=== PATIENT | female | born 1935 | race Caucasian/White ===

== ENCOUNTER → 2016-08-27 | Outpatient (CLI) | payer MEDICARE ==
--- NOTE | 2016-08-29 11:03 | P.ARTDOP ---
Arterial Doppler LOWER EXTREMITY ARTERIAL DOPPLER: DATE OF SERVICE: 08/27/2016 Reason for study: Diabetes. Doppler waveforms: Multiphasic to the dorsalis pedis on both sides blunted at the digital level. Pulse volume recording: Normal configuration. Pressure gradients: Mild gradient at the foot. Ankle-brachial indices: Greater than 1 bilaterally. Toe pressures: 71 on the right, 65 on the left Impression: Normal proximal study. Mildly decreased toe pressures could be related to vasospasm or less likely due to very distal disease
== END ==
LOC: RADUSWWP 13:42
PROVIDERS: ATTEND Family Medicine
DX: G62.9 Polyneuropathy, unspecified (principal)
CPT/HCPCS: 93923

== ENCOUNTER → 2017-05-30 | Outpatient (CLI) | payer MEDICARE ==
[2017-05-30 10:09] LABS: Blood Urea Nitrogen 19 mg/dL (7-17); Non-African American GFR(MDRD) 57 (>60 ml/min/1.73 sqM)
--- NOTE | 2017-05-30 13:24 | MR ---
EXAMINATION TYPE: MR lumbar spine wo/w con DATE OF EXAM: 05/30/2017 COMPARISON: NONE HISTORY: 81-year-old female with low back pain Technique: Multiplanar, multisequence images of the lumbar spine were obtained before and after admin istration of 5 mL intravenous Gadavist gadolinium contrast. FINDINGS: Vertebral body heights are preserved. Hypertrophic facet arthropathy lower lumbar spine with grade 1 anterolisthesis at L4-L5. Degenerative dextroconvex curvature. There is degenerative disc disease with desiccated and narrowed discs especially at L2-L3 and L3-L4. Additional variable disc desiccation throughout the remainder of the lumbar spine with bulging disks at multiple levels. Small posterior annular fissure off to the right at L5-S1. No suspicious bone marrow replacement. At T12-L1, no spinal canal or neural foraminal stenosis. At L1-L2, no spinal canal or neuroforaminal stenosis. At L2-L3, there is Modic type II fatty endplate change with diffuse disc bulge, ligamentum flavum thi ckening, and hypertrophic facet arthropathy. Bulging disc extends off to either side and may abut the traversing right L3 nerve root and possibly impinges the traversing left L3 nerve root. Changes resu lt in moderate left and mild right neuroforaminal stenosis. No significant spinal canal stenosis. At L3-L4, there is a large left paracentral disc extrusion along with hypertrophic facet arthropathy and ligamentum flavum thickening. This results in moderate to severe spinal canal stenosis with moder ate left and mild right neural foraminal stenosis. At L4-L5, there is hypertrophic facet arthropathy with ligamentum flavum thickening and grade 1 anter olisthesis. Minimal bulging disc is present. Changes result in mild bilateral neuroforaminal stenosis without spinal canal stenosis. At L5-S1, there is facet arthropathy and minimal disc bulge. Mild bilateral neuroforaminal narrowing. No spinal canal stenosis. No prevertebral or paravertebral soft tissue abnormality seen. No abnormal enhancement within the spinal canal. IMPRESSION: 1. Multilevel degenerative disc disease, greatest at L2-L3 and L3-L4 as well as hypertrophic facet ar thropathy and ligamentum flavum thickening greatest in the lower lumbar spine. 2. Changes and a grade 1 anterolisthesis at L4-L5. Degenerative dextroconvex curvature. 3. At L3-L4, there is a large left paracentral disc herniation which causes moderate to severe spinal canal stenosis. Moderate left and mild right neuroforaminal stenosis at this level. 4. At L2-L3, bulging disc extends off to either side and may abut the traversing right L3 nerve root and probably impinges the traversing left L3 nerve root. Moderate left and mild right neuroforaminal stenosis here. 5. Tiny posterior annular fissure at L5-S1.
== END | disposition home or self-care (01) ==
LOC: RADMRIMAIN 09:39
PROVIDERS: ATTEND Physical Medicine & Rehabilitation
DX: M48.061 Spinal stenosis, lumbar region without neurogenic claudication (principal); M43.16 Spondylolisthesis, lumbar region; M51.36 Other intervertebral disc degeneration, lumbar region; M46.96 Unspecified inflammatory spondylopathy, lumbar region; M51.26 Other intervertebral disc displacement, lumbar region; M99.73 Connective tissue and disc stenosis of intervertebral foramina of lumbar region; M43.8X6 Other specified deforming dorsopathies, lumbar region
CPT/HCPCS: 82565; 84520; 72158; A9581

== ENCOUNTER → 2018-06-05 | Outpatient (CLI) | payer MEDICARE | END | disposition home or self-care (01) | LOC: RADUSWWP 09:44 | PROVIDERS: ATTEND Family Medicine | DX: I73.9 Peripheral vascular disease, unspecified (principal) | CPT/HCPCS: 93923 ==

== ENCOUNTER → 2020-01-15 | Outpatient (CLI) | payer MEDICARE ==
[2020-01-15 08:57] VITALS: BP 151/69; PULSE 65; RESP 18; TEMP 97.8
--- NOTE | 2020-01-15 09:46 | P.GSHP ---
History of Present Illness H&P Date: 01/15/20 Chief Complaint: Abnormal left breast mammogram Cecille is an 84-year-old white female who had a recent diagnostic mammogram performed of the left breast on 01-07-20. She is seen in consultation for Dr. Joi Fajardo. The mammogram revealed a group of pleomorphic microcalcifications in the inferior portion of the left breast about 5 o'clock position 3.6 cm from the nipple. The recommendation was for stereotactic core biopsy. 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 This was grade 2 ER/MT positive HER-2/cirilo negative. She was on phentermine area for 5 years. She did not have any radiation or chemotherapy. She has not had any recurrence. The patient does not have any lumps masses or nodules in her left breast, no lesions of concern on her right chest wall. She is not complaining of any recent trauma or infection in the breast. She is not complaining of any skin changes or nipple discharge. Family history: patient: right breast cancer mother: breast cancer sister: colon cancer Hormonal history: Menarche: 13 , breast fed: none, first born at 23 menopause: 47 BCP: < 1 year hormones: none Surgical history: 1. Right mastectomy/reconstruction 10 months later/ DR. Sim 2. Tonsillectomy Medical History: Hypertension Cholesterol Prediabetic Ankle and foot neuropathy Social history: Smoke: Negative Alcohol: 2 glasses of wine per month Drugs: Negative - Constitutional Constitutional: Denies chills, Denies fever - EENT Comment: wears glasses, macular degeneration Eyes: denies blurred vision, denies pain Ears: deny: decreased hearing, tinnitus Ears, nose, mouth and throat: Denies headache, Denies sore throat - Breasts Breasts: bilateral: as per HPI - Cardiovascular Cardiovascular: Reports high blood pressure - Respiratory Respiratory: Denies cough, Denies 7 - Gastrointestinal Gastrointestinal: Denies abdominal pain, Denies diarrhea, Denies nausea, Denies vomiting - Genitourinary (Female) Genitourinary: Denies dysuria, Denies hematuria - Menstruation Menstruation: Reports postmenopausal - Musculoskeletal Comment: arthritis - Integumentary Integumentary: Denies pruritus, Denies rash - Neurological Comment: Neuropathy of bilateral/feet - Psychiatric Psychiatric: Denies anxiety, Denies depression - Endocrine Comment: hypothyroid Endocrine: Denies fatigue, Denies weight change - Hematologic/Lymphatic Comment: none - Allergic/Immunologic Allergic/Immunologic: Reports as per HPI Past Medical History History of Any Multi-Drug Resistant Organisms: None Reported Smoking Status: Former smoker Medications and Allergies Home Medications Medication Instructions Recorded Confirmed Type Gabapentin [Neurontin] 400 mg PO HS 01/14/20 01/14/20 History Hydrochlorothiazide 12.5 mg PO AC-LUNCH 01/14/20 01/14/20 History [hydroCHLOROthiazide] Levothyroxine Sodium [Synthroid] 50 mcg PO QAM 01/14/20 01/14/20 History Losartan [Cozaar] 100 mg PO AC-LUNCH 01/14/20 01/14/20 History Lovastatin [Mevacor] 20 mg PO HS 01/14/20 01/14/20 History Spironolactone 12.5 mg PO AC-LUNCH 01/14/20 01/14/20 History metFORMIN HCL 500 mg PO PC-SUPPER 01/14/20 01/14/20 History Allergies Allergy/AdvReac Type Severity Reaction Status Date / Time acetaminophen [From Vicodin] Allergy Nausea Unverified 01/15/20 08:53 hydrocodone [From Vicodin] Allergy Nausea Unverified 01/15/20 08:53 hydromorphone [From Dilaudid] Allergy Nausea Unverified 01/15/20 08:53 Surgical - Exam Vital Signs Temp Pulse Resp BP Pulse Ox 97.8 F 65 18 151/69 93 L 01/15/20 08:54 01/15/20 08:54 01/15/20 08:54 01/15/20 08:54 01/15/20 08:54 BMI 20.1 - General well developed, well nourished, no distress - Eyes normal ocular movement - ENT no hearing loss, no congestion - Neck no masses, trachea midline - Respiratory normal respiratory effort, clear to auscultation - Cardiovascular Rhythm: regular Heart Sounds: normal: S1, S2 - Abdomen Abdomen: soft, non tender, no guarding, no rigid, no rebound - Integumentary normal turgor - Neurologic no disoriented, no combative - Musculoskeletal normal gait - Psychiatric oriented to time, oriented to person, oriented to place, speech is normal, memory intact Breast exam: BRA: 34C inspection: Right chest wall: Reconstructed right breast Left breast ptosis grade 2/3 no skin lesions of concern Palpation: Right chest wall: No evidence of recurrent cancer Right axilla: No adenopathy of concern Left breast: Multiple positional exam no dominant masses or nodules of concern Left axilla: No adenopathy of concern Results Review of left breast mammogram reveals pleomorphic calcifications in the 5 o'clock position for which stereotactic core biopsy is recommended Assessment and Plan Assessment: Impression: Hypertension Cholesterol Prediabetic Ankle and foot neuropathy Prior history of right breast cancer Abnormal mammogram left breast Plan: 1. Stereotactic core biopsy left breast 2. Patient following up with plastic surgery regarding implant exchange secondary to age of implant, she is going to wait until results of left breast biopsy or known 3. Medical management of medical conditions Risks and benefits of stereotactic core biopsy discussed with the patient. Risks include but are not limited to bleeding, infection, reaction to the anesthetic. If the lesion is discordant we will consider open biopsy. The patient understands and wishes to proceed. CC: DR. Fajardo encounter 45 minutes, > 50% of time in planning and counselling Time with Patient: Greater than 30
== END | disposition home or self-care (01) ==
LOC: WWCWWP 08:41
PROVIDERS: ATTEND Surgery
DX: Z53.9 Procedure and treatment not carried out, unspecified reason (principal)

== ENCOUNTER → 2020-01-26 | Day surgery (SDC) | payer MEDICARE ==
[2020-01-26 07:18] VITALS: RESP 16; TEMP 97.8
--- NOTE | 2020-01-26 08:52 | MM ---
EXAMINATION TYPE: MG stereo VAD BX LT DATE OF EXAM: 01/26/2020 COMPARISON: Prior mammograms January 07, 2020 and older mammograms. CLINICAL HISTORY: Abnormal mammogram TECHNIQUE: Stereotactic guided core biopsy of left breast. FINDINGS: The procedure of stereotactic guided core biopsy was explained to the patient. Benefits, alternatives, and risks were discussed. An informed consent was then obtained. The shortness pathway for biopsy was chosen. Shortness pathway was lateral approach. I performed the localization, then performed the remainder of the procedure. Lidocaine is used as anesthetic into the skin and subcutaneous tissue. Lidocaine with epinephrine is used as anesthetic to the deeper tissue during sampling. A vacuum assisted biopsy gun was used to obtain multiple core samples. The patient tolerated the procedure well without any immediate complication. The patient was kept in the radiology department for short stay after the procedure and then discharged home in stable condition. Targeted calcifications are identified in specimen mammogram. Post biopsy mammogram shows the clip to appear in satisfactory position relative to the targeted area of concern on the preprocedure images with no significant residual calcifications at this level. IMPRESSION: SUCCESSFUL, UNCOMPLICATED STEREOTACTIC GUIDED CORE BIOPSY OF AREA OF CONCERN IN THE LEFT BREAST, FULL PATHOLOGY RESULTS TO FOLLOW. Intermediate index of suspicion noted at time of procedure. 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 Coarse intraductal calcifications are identified, see note. Appropriate controlled immunohistochemical studies for Cytokeratin 5/6 are negative in neoplastic cells confirming the diagnosis of DCIS. Recommendation Surgical consult of the left breast. [facility]
[2020-01-26 08:55] VITALS: BP 150/72; PULSE 58
== END ==
LOC: RADMAMWWP 06:57
PROVIDERS: ATTEND Surgery
DX: D05.82 Other specified type of carcinoma in situ of left breast (principal)
CPT/HCPCS: 88305; 88342; 88341; 19081; J2001

== ENCOUNTER → 2020-02-12 | Outpatient (CLI) | payer MEDICARE ==
[2020-02-12 09:13] VITALS: BP 152/64; PULSE 63; RESP 20; TEMP 97.7
--- NOTE | 2020-02-12 10:05 | P.PN ---
Subjective Progress Note Date: 02/12/20 Principal diagnosis: stage 0 left breast cancer Cecille is an 84-year-old white female who had a recent diagnostic mammogram performed of the left breast on 01-07-20. She is seen in consultation for Dr. Joi Fajardo. The mammogram revealed a group of pleomorphic microcalcifications in the inferior portion of the left breast about 5 o'clock position 3.6 cm from the nipple. The recommendation was for stereotactic core biopsy. 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 This was grade 2 ER/FL positive HER-2/cirilo negative. She was on phentermine area for 5 years. She did not have any radiation or chemotherapy. She has not had any recurrence. The patient does not have any lumps masses or nodules in her left breast, no lesions of concern on her right chest wall. She is not complaining of any recent trauma or infection in the breast. She is not complaining of any skin changes or nipple discharge. She underwent a left breast stereotactic core biopsy on . Pathology revealed high-grade ductal carcinoma in situ with comedo form necrosis. The size is felt to be less than 5 mm measuring radiographically, it is ER/FL negative. The patient's radiographs were again reviewed with radiology. There is a question of a second area of density for which may views have been recommended. If made user suspicious the patient will then be recommended to undergo in additional biopsy of this site versus an MRI. She has no complaints related to the stereo biopsy. Family history: patient: right breast cancer mother: breast cancer sister: colon cancer Hormonal history: Menarche: 13 , breast fed: none, first born at 23 menopause: 47 BCP: < 1 year hormones: none Surgical history: 1. Right mastectomy/reconstruction 10 months later/ DR. Sim 2. Tonsillectomy Medical History: Hypertension Cholesterol Prediabetic Ankle and foot neuropathy Social history: Smoke: Negative Alcohol: 2 glasses of wine per month Drugs: Negative - Constitutional Constitutional: Denies chills, Denies fever - EENT Comment: wears glasses, macular degeneration Eyes: denies blurred vision, denies pain Ears: deny: decreased hearing, tinnitus Ears, nose, mouth and throat: Denies headache, Denies sore throat - Breasts Breasts: bilateral: as per HPI - Cardiovascular Cardiovascular: Reports high blood pressure - Respiratory Respiratory: Denies cough - Gastrointestinal Gastrointestinal: Denies abdominal pain, Denies diarrhea, Denies nausea, Denies vomiting - Genitourinary (Female) Genitourinary: Denies dysuria, Denies hematuria - Menstruation Menstruation: Reports postmenopausal - Musculoskeletal Comment: arthritis - Integumentary Integumentary: Denies pruritus, Denies rash - Neurological Comment: Neuropathy of bilateral/feet - Psychiatric Psychiatric: Denies anxiety, Denies depression - Endocrine Comment: hypothyroid Endocrine: Denies fatigue, Denies weight change - Hematologic/Lymphatic Comment: none - Allergic/Immunologic Allergic/Immunologic: Reports as per HPI Objective - Vital Signs Vital signs: Vital Signs Temp 97.7 F 02/12/20 09:11 Pulse 63 02/12/20 09:11 Resp 20 02/12/20 09:11 BP 152/64 02/12/20 09:11 Pulse Ox 92 L 02/12/20 09:11 Intake & Output 02/11/20 02/12/20 02/12/20 18:59 06:59 18:59 Weight 49.895 kg - Exam BMI 20.1 - Constitutional General appearance: Present: average body habitus, cooperative - EENT Eyes: Present: EOMI ENT: Present: hearing grossly normal - Neck Neck: Present: normal ROM - Respiratory Respiratory: bilateral: CTA - Cardiovascular Rhythm: regular Heart sounds: normal: S1, S2 - Gastrointestinal General gastrointestinal: Present: soft - Integumentary Integumentary: Present: normal turgor - Musculoskeletal Musculoskeletal: Present: gait normal - Psychiatric Psychiatric: Present: A&O x's 3, appropriate affect, intact judgment & insight - Additional findings Additional findings: breast: BRA 34C inspection: Right chest wall reconstructed breast, left breast ptosis grade 3 Palpation: Right chest wall no recurrent cancer Right axilla: No adenopathy of concern Left breast: Mild ecchymosis at biopsy segment hematoma or infection no dominant masses or nodules of concern, fibrocystic changes Left axilla: No adenopathy of concern Assessment and Plan Assessment: Impression: 1. Stage 0 left breast cancer/ER/FL negative/high-grade comedonecrosis DCIS, approximately 5 mm in size 2. Status post right mastectomy for stage I breast cancer no evidence of recurrence 3. Review of mammogram reveals questionable secondary in the breast which magnification views recommended Plan: 1. Needle localization lumpectomy of the area of ductal carcinoma in situ if that is the only area of concern in the breast, possible [place] plastic tissue transfer, possible mastopexy 2. Magnification views of the left breast with possible biopsy, possible recommendation of MRI, possibly that the radiologist therefore this is non- worrisome and will be followed conservatively 3. [place] node biopsy, possible axillary node dissection I discussed treatment options with Cecille. These include for the left breast the possibility of a needle localization lumpectomy if the area of DCIS is limited in the breast, versus a mastectomy if she has multifocal disease. The patient would prefer a lumpectomy. Additionally she will preferred that we did this the mastopexy approach. We have talked about utilizing a donut mastopexy, and the possibility of a lollipop incision. She understands and wishes to proceed. A dditionally we have talked about sentinel node biopsy and possible axillary node dissection. Again the risks include but are not limited to bleeding, infection, reaction to the anesthetic. There is risk of lymphedema and decreased sensation to the inner arm. Based on the magnification views of the left breast further recommendation to follow. Time with Patient: Greater than 30
--- NOTE | 2020-02-12 12:16 | MM ---
Reason for exam: additional evaluation requested from prior study. History: Patient is postmenopausal, has history of breast cancer at age 84, and history of other cancer. Family history of breast cancer in mother at age 87. Malignant MG stereo VAD BX LT of the left breast, January 26, 2020. Mastectomy of the right breast. Physical Findings: Breast exam performed by Dr. Guzmán. MG Diagnostic Mammo LT w CAD CC, MLO, ML, CC with magnification, and ML with magnification view(s) were taken of the left breast. The breast tissue is heterogeneously dense. This may lower the sensitivity of mammography. Biopsy proved DCIS with clip at the lower outer quadrant. Benign oil cyst calcifications 12 o'clock. Scattered vascular calcifications. No suspicious grouped calcifications are identified. These results were verbally communicated with the patient and result sheet given to the patient on 02/12/20. ASSESSMENT: Known biopsy proven malignancy, BI-RAD 6 RECOMMENDATION: Surgical consultation of the left breast. Procedure with surgery as planned with Dr. Guzmán.
== END | disposition home or self-care (01) ==
LOC: WWCWWP 08:53
PROVIDERS: ATTEND Surgery
DX: R92.8 Other abnormal and inconclusive findings on diagnostic imaging of breast (principal)
CPT/HCPCS: 77065

== ENCOUNTER 2020-03-08 07:04 | Day surgery (SDC) | payer MEDICARE ==
[2020-03-04 11:41] VITALS: BMI 20.1
[~2020-03-08 07:04] MED LIST: DEXAMETHASONE SOD PHOSPHATE 10 MG/ML 1 ML VIAL IV ONE; HEPARIN SODIUM,PORCINE 5,000 UNIT/ML 1 ML VIAL SQ ONE; LACTATED RINGERS 1,000 ML IV SCH; LIDOCAINE 1% (10MG/ML) FOR IV START INTRADERMA PRN; MIDAZOLAM 2 MG/2 ML VIAL IV PRN; ONDANSETRON 4 MG/2 ML VIAL IVP ONE; Pre Op ABX Message 1 EACH MISC MISCELLANE ONE
[2020-03-08 08:03] LABS: Glucose,Whole Blood 101 mg/dL (75-99)
[2020-03-08] MEDS ORDERED: LIDOCAINE 1% INJ 10MG/ML (20 ML MDV) SQ ONE ×2 (08:46→11:25)
--- NOTE | 2020-03-08 09:34 | P.NAPBC ---
NAPBC Queries - NAPBC Queries Was patient's case review presented at [facility] tumor board? If no, comment.: Yes Was patient's pathology reviewed at [facility]? If no, comment.: Yes Was breast conservation surgery offered? If no, comment.: Yes Was sentinel node biopsy offered? If no, comment.: Yes Was diagnosis confirmed by percutaneous core biopsy? If no, comment.: Yes Is patient mastectomy patient?: No Was a preop referral to reconstructive surgeon offered?: No Clinical Stage: stage 0 left breast
[2020-03-08] MEDS ORDERED: fentaNYL (PF) 50 MCG/ML 2 ML AMP ONE (09:55)
[2020-03-08] MEDS ORDERED: PROPOFOL 10 MG/ML 20 ML VIAL IV ONE (09:55)
[2020-03-08] MEDS ORDERED: ePHEDrine SULFATE/0.9% NACL/PF 50 MG/5 ML SYRINGE IV ONE (09:55)
[2020-03-08] MEDS ORDERED: LIDOCAINE 1% INJ 10MG/ML (20 ML MDV) ONE (09:55)
--- NOTE | 2020-03-08 10:09 | NM ---
EXAMINATION TYPE: NM sentinel node injection DATE OF EXAM: 03/08/2020 COMPARISON: NONE HISTORY: Left breast biopsy TECHNIQUE AND FINDINGS: The procedure of sentinel lymph node injection was explained to the patient. The benefits, alternatives, and risks were discussed. An informed consent was then obtained. Overlying skin is cleaned with sterile alcohol. Lidocaine buffered with bicarbonate was used as anes thetic into the skin and subcutaneous tissue surrounding the nipple. Following this, 525uCi [id number] Ly mphoseek was injected surrounding the outer aspect of the left nipple intradermally. The injection sites were massaged by nuclear medicine specialist for 10 minutes after injection. T he patient tolerated the procedure well without any immediate complication. The patient was kept in the radiology department for short stay after the procedure and then taken to surgery for surgical pr ocedure what is presumed intraoperative gamma probe will be used for sentinel lymph node detection. IMPRESSION: Left breast radiotracer injection for sentinel node localization as above.
--- NOTE | 2020-03-08 11:25 | MM ---
EXAMINATION TYPE: MG pre op needle loc LT DATE OF EXAM: 03/08/2020 COMPARISON: 02/12/2020, 01/26/2020, 01/07/2020 CLINICAL HISTORY: Request for needle localization of the previous biopsy clip TECHNIQUE: Needle localization with wire placement and surgical excision of area of concern in the left breast. FINDINGS: The procedure of needle localization with wire placement and than surgical excision was explained to the patient. Benefits, alternatives, and risks were discussed. An informed consent was then obtained. The shortest pathway for procedure was chosen. Shortest pathway was lateral approach. The overlying skin was prepped and draped in usual sterile fashion. Lidocaine buffered with bicarbonate was used as anesthetic into the skin and subcutaneous tissue up to the level of area of concern. A 5 cm cm needle was used. It was placed via a lateral approach under mammographic guidance. Subsequent 90 degrees mammogram show the needle to be in satisfactory position relative to the targeted area. At this point, wire was placed and the needle was withdrawn. The wire was fixed to patient's skin. Images were marked for surgeon. The patient tolerated the procedure well without any immediate complication. The patient was kept in the radiology department for short stay after the procedure and then taken to surgery for surgical excision. Targeted requested surgical clip and wire are identified in specimen mammogram. The patient was kept in hospital for short stay after the procedure and then discharged home in stable condition. IMPRESSION: Successful, uncomplicated needle localization with wire placement and surgical excision of requested surgical clip in the left breast, full pathology results to follow. Pathology Results: Malignant A. LEFT SENTINEL LYMPH NODE, BIOPSY: Two lymph nodes negative for metastasis. CK7 and PRESLEY immunoperoxidase stains are confirmatory (controls appropriate). B. 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 See Surgical Pathology Cancer Case Summary. Recommendation Oncologic management. [facility]
[2020-03-08 11:48] VITALS: TEMP 97.4
--- NOTE | 2020-03-08 11:48 | P.OP ---
Date of Procedure: 03/08/20 Preoperative Diagnosis: Left breast DCIS Postoperative Diagnosis: Same Procedure(s) Performed: [place] node biopsy left axilla, needle localization excisional lumpectomy left breast, onco-plastic tissue transfer Anesthesia: BRENDENA Surgeon: Aylin Guzmán Estimated Blood Loss (ml): 10 IV fluids (ml): 400 Pathology: other ([place] node from left axilla, breast tissue) Condition: stable Disposition: same day Indications for Procedure: Left breast ductal carcinoma in situ Operative Findings: Dense breast tissue Description of Procedure: Cecille is a 74-year-old white female who was diagnosed with a left breast DCIS on core biopsy. The surgical options were discussed with the patient and she chose a lumpectomy with sentinel node biopsy possible axillary node dissection. We discussed mastopexy and onco-plastic tissue transfer as well. She has opted to forego the mastopexy following the needle localization. The patient was taken to the operating room and following induction of anesthesia a Shannan counter was used to evaluate the axilla for radioactivity. Radioactivity was noted to be present in the axilla, and thus no blue dye was injected for lymphatic mapping. The left breast and axilla were prepped and draped in a sterile fashion. An incision was made in the axillary hairline and carried down to the deep axillary tissues. The direction of the Shannan counter radioactive lymph node was identified. This was dissected free. Surrounding tissue was evaluated for hemostasis. Hemostasis was achieved using the electrocautery device, and the Harmonic scalpel. Following this the wound was irrigated. Interrogation of the lymph node revealed a 10 second count of 3700. The 10 second background count of the axilla was approximately 30. After we were assured that hemostasis was attained the deep tissues were closed using 3-0 Vicryl suture. The skin was closed using 4-0 Monocryl. Following this the specimen was sent for frozen section evaluation. The lymph nodes were negative for cancer on frozen section. The left breast was then approached. The transverse incision was made and carried down to the tip of the needle. Wide excision was performed around the needle. Titanium clips were placed after we assured that hemostasis was attained. The specimen was painted for orientation. Radiograph of the specimen revealed the area of concern had been removed. The superior tissue was freed; 7 cm x 2 cm for 14 cm of tissue. The inferior tissues were likewise freed 7 cm x 2 cm for 14 cm of tissue. A total of 28 square centimeters of tissue was free d. The superior and inferior wires of tissue were brought together using 3-0 Vicryl suture. Following this the skin was closed using 4-0 Monocryl. A nylon suture was placed over the top of this. The patient tolerated the procedure in stable condition. The specimen radiograph revealed that the lesion of concern had been removed. The patient tolerated the procedure in stable condition. All instrument and sponge counts were correct at the end of the case.
--- NOTE | 2020-03-08 11:51 | P.DS ---
Providers Attending physician: Aylin Guzmán Primary care physician: Stated None Plan - Discharge Summary Discharge Rx Participant: Yes New Discharge Prescriptions: No Action Hydrochlorothiazide [hydroCHLOROthiazide] 12.5 mg PO 1200 Losartan [Cozaar] 100 mg PO 1200 Spironolactone 12.5 mg PO 1200 Gabapentin [Neurontin] 400 mg PO HS metFORMIN HCL 500 mg PO PC-SUPPER Lovastatin [Mevacor] 20 mg PO MOWEFR Levothyroxine Sodium [Synthroid] 50 mcg PO QAM Vitamin C/Biotin [Hair, Skin and Nails] 1 tab PO DAILY Vit C/E/Zn/Coppr/Lutein/Zeaxan [Preservision Areds 2 Softgel] 1 each PO DAILY Multivitamin [Multivitamins Adult Gummies] 1 each PO DAILY Calcium Carbonate [Calcium] 600 mg PO DAILY Discharge Medication List Gabapentin [Neurontin] 400 mg PO HS 01/14/20 [History] Hydrochlorothiazide [hydroCHLOROthiazide] 12.5 mg PO 1200 01/14/20 [History] Levothyroxine Sodium [Synthroid] 50 mcg PO QAM 01/14/20 [History] Losartan [Cozaar] 100 mg PO 1200 01/14/20 [History] Lovastatin [Mevacor] 20 mg PO MOWEFR 01/14/20 [History] Spironolactone 12.5 mg PO 1200 01/14/20 [History] metFORMIN HCL 500 mg PO PC-SUPPER 01/14/20 [History] Calcium Carbonate [Calcium] 600 mg PO DAILY 02/12/20 [History] Multivitamin [Multivitamins Adult Gummies] 1 each PO DAILY 02/12/20 [History] Vit C/E/Zn/Coppr/Lutein/Zeaxan [Preservision Areds 2 Softgel] 1 each PO DAILY 02/12/20 [History] Vitamin C/Biotin [Hair, Skin and Nails] 1 tab PO DAILY 02/12/20 [History] Follow up Appointment(s)/Referral(s): Aylin Guzmán MD [STAFF PHYSICIAN] - 1 Week Activity/Diet/Wound Care/Special Instructions: do not drive until seen by Dr. Corley next week may shower after 48 hours wear bra at all times Discharge Disposition: HOME SELF-CARE
[2020-03-08 13:02] VITALS: RESP 16
[2020-03-08 13:50] VITALS: BP 126/75; PULSE 69
--- NOTE | 2020-03-15 08:49 | MM ---
MG Surgical Specimen LT EXAMINATION TYPE: MG pre op needle loc LT DATE OF EXAM: 03/08/2020 COMPARISON: 02/12/2020, 01/26/2020, 01/07/2020 CLINICAL HISTORY: Request for needle localization of the previous biopsy clip TECHNIQUE: Needle localization with wire placement and surgical excision of area of concern in the left breast. FINDINGS: The procedure of needle localization with wire placement and than surgical excision was explained to the patient. Benefits, alternatives, and risks were discussed. An informed consent was then obtained. The shortest pathway for procedure was chosen. Shortest pathway was lateral approach. The overlying skin was prepped and draped in usual sterile fashion. Lidocaine buffered with bicarbonate was used as anesthetic into the skin and subcutaneous tissue up to the level of area of concern. A 5 cm cm needle was used. It was placed via a lateral approach under mammographic guidance. Subsequent 90 degrees mammogram show the needle to be in satisfactory position relative to the targeted area. At this point, wire was placed and the needle was withdrawn. The wire was fixed to patient's skin. Images were marked for surgeon. The patient tolerated the procedure well without any immediate complication. The patient was kept in the radiology department for short stay after the procedure and then taken to surgery for surgical excision. Targeted requested surgical clip and wire are identified in specimen mammogram. The patient was kept in hospital for short stay after the procedure and then discharged home in stable condition. IMPRESSION: Successful, uncomplicated needle localization with wire placement and surgical excision of requested surgical clip in the left breast, full pathology results to follow. RECOMMENDATION: Surgical consultation of the left breast. ADRI
== END 2020-03-08 13:49 | disposition home or self-care (01) ==
LOC: OR 07:04
PROVIDERS: ATTEND Surgery
DX: D05.12 Intraductal carcinoma in situ of left breast (principal); I10 Essential (primary) hypertension; I44.7 Left bundle-branch block, unspecified; E07.9 Disorder of thyroid, unspecified; E11.59 Type 2 diabetes mellitus with other circulatory complications; M81.0 Age-related osteoporosis without current pathological fracture; Z88.5 Allergy status to narcotic agent; Z98.890 Other specified postprocedural states; Z79.84 Long term (current) use of oral hypoglycemic drugs; Z79.890 Hormone replacement therapy; Z79.899 Other long term (current) drug therapy; Z80.0 Family history of malignant neoplasm of digestive organs; Z85.3 Personal history of malignant neoplasm of breast; Z90.11 Acquired absence of right breast and nipple; G62.9 Polyneuropathy, unspecified
CPT/HCPCS: 19301; 38525; 88342; 88331; 88307; 88341; 76098; 19281; 38792; A9520; J1644; J1100; J2405; J2001; J3010; J2704

== ENCOUNTER → 2020-03-18 | Outpatient (CLI) | payer MEDICARE ==
[2020-03-18 16:50] VITALS: BP 172/80; PULSE 66; RESP 12; TEMP 97.8
--- NOTE | 2020-03-18 17:02 | P.PN ---
Progress Note - Text Progress Note Date: 03/18/20 Patient is an 84-year-old white female status post left breast lumpectomy [place] [id number]. Pathology did reveal positive inferior and close anterior margins for high-grade DCIS. Her 2 lymph nodes were removed which were negative for metastatic disease. The patient has done well postoperatively without complaints related to the surgery. Lungs: Clear Heart: Regular rate and rhythm Incision: Clean and dry and the breast and axilla Impression: 1. Patient status post left breast lumpectomy and sentinel node biopsy, lymph nodes negative however margins are positive inferiorly and closed anteriorly Plan: 1. The patient with reexcision of the anterior and inferior margins. We discussed surgical reexcision versus mastectomy. She also discussed with us mastectomy plus or minus reconstruction. At this time she would prefer an attempted surgical reexcision. This will be scheduled in the near future. cc: Dr. Fajardo
== END | disposition home or self-care (01) ==
LOC: WWCWWP 16:14
PROVIDERS: ATTEND Surgery
DX: Z53.9 Procedure and treatment not carried out, unspecified reason (principal)

== ENCOUNTER → 2020-05-12 | Outpatient (CLI) | payer MEDICARE ==
[2020-05-12 15:36] VITALS: BP 174/77; PULSE 65; RESP 18; TEMP 97.9
--- NOTE | 2020-05-12 16:08 | P.PN ---
Subjective Progress Note Date: 05/12/20 Principal diagnosis: left breast DCIS Cecille is an 84-year-old white female who had a diagnostic mammogram performed of the left breast on 01-07-20. She was seen in consultation for Dr. Joi Fajardo. The mammogram revealed a group of pleomorphic microcalcifications in the inferior portion of the left breast about 5 o'clock position 3.6 cm from the nipple. The recommendation was for stereotactic core biopsy. 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 This was grade 2 ER/AZ positive HER-2/cirilo negative. She was on Femora for 5 years. She did not have any radiation or chemotherapy. She has not had any recurrence. The patient did not complain of any lumps masses or nodules in her left breast, no lesions of concern on her right chest wall. She was not complaining of any recent trauma or infection in the breast. She is not complaining of any skin changes or nipple discharge. She [place] [id number]. Pathology reve aled high-grade ductal carcinoma in situ with comedo form necrosis. The size is felt to be less than 5 mm measuring radiographically, it is ER/AZ negative. The patient's radiographs were again reviewed with radiology. There is a question of a second area which was created with additional x-rays. The patient then underwent a needle localization and excisional lumpectomy with a plastic tissue transfer and sentinel node biopsy on [id number]. Pathology revealed 2 lymph nodes negative for cancer. High-grade DCIS involving the green into inferior margin and closely approximating the blue inked anterior margin was noted. The extent of DCIS was at least 8 mm by direct measurement. Initially she considered rexcision of the area however after contemplation the patient has decided that she would prefer to have a mastectomy performed. She had genetic testing done which was negative. Family history: patient: right breast cancer mother: breast cancer sister: colon cancer Hormonal history: Menarche: 13 , breast fed: none, first born at 23 menopause: 47 BCP: < 1 year hormones: none Surgical history: 1. Right mastectomy/reconstruction 10 months later/ DR. Sim 2. Tonsillectomy 3. left lumpectom and SNB Medical History: Hypertension Cholesterol Prediabetic Ankle and foot neuropathy Social history: Smoke: Negative Alcohol: 2 glasses of wine per month Drugs: Negative - Constitutional Constitutional: Denies chills, Denies fever - EENT Comment: wears glasses, macular degeneration Eyes: denies blurred vision, denies pain Ears: deny: decreased hearing, tinnitus Ears, nose, mouth and throat: Denies headache, Denies sore throat - Breasts Breasts: bilateral: as per HPI - Cardiovascular Cardiovascular: Reports high blood pressure - Respiratory Respiratory: Denies cough - Gastrointestinal Gastrointestinal: Denies abdominal pain, Denies diarrhea, Denies nausea, Denies vomiting - Genitourinary (Female) Genitourinary: Denies dysuria, Denies hematuria - Menstruation Menstruation: Reports postmenopausal - Musculoskeletal Comment: arthritis - Integumentary Integumentary: Denies pruritus, Denies rash - Neurological Comment: Neuropathy of bilateral/feet - Psychiatric Psychiatric: Denies anxiety, Denies depression - Endocrine Comment: hypothyroid Endocrine: Denies fatigue, Denies weight change - Hematologic/Lymphatic Comment: none - Allergic/Immunologic Allergic/Immunologic: Reports as per HPI Objective - Vital Signs Vital signs: Vital Signs Temp 97.9 F 05/12/20 15:33 Pulse 65 05/12/20 15:33 Resp 18 05/12/20 15:33 BP 174/77 05/12/20 15:33 Pulse Ox 100 05/12/20 15:33 Intake & Output 05/11/20 05/12/20 05/12/20 18:59 06:59 18:59 Weight 49.895 kg - Exam BMI 20 - Constitutional General appearance: Present: average body habitus - EENT Eyes: Present: EOMI ENT: Present: hearing grossly normal - Neck Neck: Present: normal ROM - Respiratory Respiratory: bilateral: CTA - Cardiovascular Rhythm: regular Heart sounds: normal: S1, S2 - Gastrointestinal General gastrointestinal: Present: normal bowel sounds, soft - Integumentary Integumentary: Present: normal turgor - Musculoskeletal Musculoskeletal: Present: gait normal - Psychiatric Psychiatric: Present: A&O x's 3, appropriate affect - Additional findings Additional findings: Breast exam: BRA: 34C inspection: well healed scar from prior mastectomy, reconstructed breast right, left breast well healed scar palpation: Right breast: Reconstructed right breast with an implant, no evidence of recurrent cancer on chest wall Right axilla: No adenopathy of concern Left breast: Multi-positional exam fibrocystic changes no dominant masses or nodules of concern Left axilla: No adenopathy of concern Assessment and Plan Assessment: Impression: Hypertension Cholesterol Prediabetic Ankle and foot neuropathy Left breast stage 0 breast cancer with positive margins anteriorly and inferiorly The testing done which was negative Plan: 1. After discussion the patient has opted for a left breast mastectomy, she would like a skin sparing mastectomy 2. We have discussed seeing a plastic surgeon and the patient would like to defer this at the present time but will plan to see one in the future 3. Clearance from Dr. Fajardo CC: Dr. Fajardo Risks and benefits of the procedure but discussed with the patient. These include bleeding, infection, reaction to the anesthetic. She understands and wishes to proceed. The patient we have discussed the situation at the hospital. She understands that visitors may be limited. And wishes to proceed. encounter 30 minutes, > 50% of time in planning and counselling
== END | disposition home or self-care (01) ==
LOC: WWCWWP 14:44
PROVIDERS: ATTEND Surgery
DX: Z53.9 Procedure and treatment not carried out, unspecified reason (principal)

== ENCOUNTER 2020-05-17 07:18 | Day surgery (SDC) | payer MEDICARE ==
[2020-05-13 09:20] VITALS: BMI 20.1
[~2020-05-17 07:18] MED LIST changes: -DEXAMETHASONE SOD PHOSPHATE 10 MG/ML 1 ML VIAL IV ONE; -HEPARIN SODIUM,PORCINE 5,000 UNIT/ML 1 ML VIAL SQ ONE; +HEPARIN SODIUM,PORCINE 5,000 UNIT/ML 1 ML VIAL SQ PRN; +HYDROmorphone 0.5 MG/0.5 ML SYRINGE IVP PRN; -MIDAZOLAM 2 MG/2 ML VIAL IV PRN
[2020-05-17] MEDS ORDERED: fentaNYL (PF) 50 MCG/ML 2 ML AMP ONE (08:35)
[2020-05-17] MEDS ORDERED: ePHEDrine SULFATE/0.9% NACL/PF 50 MG/5 ML SYRINGE IV ONE (08:35)
[2020-05-17] MEDS ORDERED: PROPOFOL 10 MG/ML 20 ML VIAL IV ONE (08:35)
[2020-05-17] MEDS ORDERED: SUCCINYLCHOLINE CHLORIDE 100 MG/5 ML SYR IV ONE (08:35)
[2020-05-17] MEDS ORDERED: LIDOCAINE 1% INJ 10MG/ML (20 ML MDV) ONE (08:35)
[2020-05-17 08:42] LABS: Glucose,Whole Blood 111 mg/dL (75-99)
--- NOTE | 2020-05-17 08:46 | P.NAPBC ---
[facility] Qu[facility] - [facility] Was patient's case review presented at [facility] tumor board? If no, comment.: Yes Was patient's pathology reviewed at [facility]? If no, comment.: Yes Was breast conservation surgery offered? If no, comment.: Yes Was sentinel node biopsy offered? If no, comment.: Yes (already done) Was diagnosis confirmed by percutaneous core biopsy? If no, comment.: Yes Is patient mastectomy patient?: Yes Was a preop referral to reconstructive surgeon offered?: Yes (will follow up in [facility] post -procedure) [facility] Comments: margins + from excisional lumpectomy, patient opted for mastectomy, given option of re-excision but declined, given option to see plastic surgery pre-op but declined Clinical Stage: stage0
[2020-05-17] MEDS ORDERED: ONDANSETRON 4 MG/2 ML VIAL IVP PRN (10:21)
[2020-05-17] MEDS ORDERED: NALOXONE 0.4 MG/ML 1 ML VIAL IV PRN (10:21)
[2020-05-17] MEDS ORDERED: HYDROcodone/APAP 5-325MG 1 EACH TAB PO PRN (10:21)
[2020-05-17] MEDS ORDERED: HYDROmorphone 1 MG/ML 1 ML SYRINGE IVP PRN (10:21)
--- NOTE | 2020-05-17 10:21 | P.OP ---
Date of Procedure: 05/17/20 Preoperative Diagnosis: Left breast DCIS/positive margin after lumpectomy Postoperative Diagnosis: Same Procedure(s) Performed: Left skin sparing mastectomy Anesthesia: BRENDENA Surgeon: Aylin Guzmán Estimated Blood Loss (ml): 20 IV fluids (ml): 650 Pathology: other (breast tissue) Condition: stable Disposition: floor Indications for Procedure: Left breast lumpectomy for DCIS/positive inferior margin close anterior margin recommended for reexcision patient opted for mastectomy Operative Findings: Dense breast tissue Description of Procedure: Tamsulosin HCl 4-year-old white female status post lumpectomy for DCIS. On lumpectomy specimen was noted to be positive tumor at the inferior margin and close tumor at the anterior margin. After discussion with the patient she wishes mastectomy to be performed rather than a reexcision of the lumpectomy site. The patient was taken to the operating room and the left breast was prepped and draped in the sterile fashion following induction of anesthesia. In the preoperative area of the position for the incisions had been drawn. This was reestablished in the operating room. A skin sparing mastectomy was performed. The incision was brought through the skin and and superiorly to the subcutaneous tissue. The incision was carried through the skin as well. The superior medial lateral and inferior skin flaps were then developed using electrocautery device as well as the Harmonic scalpel. This was dissected down to the chest wall. Careful dissection of the breast from medial to lateral off the pectoralis major muscle was performed. After assured that hemostasis was attained the wound was irrigated. Surgicel and pyriform was placed. The specimen was marked with a short suture superior and long suture lateral. A #10 CHIDI drain was placed. The subcutaneous tissue was closed with a 3-0 Vicryl suture. The skin was closed using myriam. The drain was secured with a 3-0 nylon suture. The patient tolerated procedure in stable condition. All instrument and sponge counts were correct at the end of the case.
[2020-05-17] MEDS ORDERED: DEXTROSE 5%-0.45% NACL 1,000 ML IV SCH (10:30)
[2020-05-17 10:47] LABS: Glucose,Whole Blood 115 mg/dL (75-99)
[2020-05-17 11:03] VITALS: TEMP 97.9
[2020-05-17] MEDS: MORPHINE SULFATE 4 MG/ML SYRINGE IVP ONE ×2 (11:29→11:39)
[2020-05-17] MEDS ORDERED: SODIUM CHLORIDE 0.9% 1,000 ML IV ONE (11:42)
[2020-05-17] MEDS ORDERED: hydrALAZINE HCL 20 MG/ML 1 ML VIAL IVP ONE ×2 (11:54→12:00)
[2020-05-17] MEDS ORDERED: MORPHINE SULFATE 4 MG/ML SYRINGE IVP ONE (12:25)
[2020-05-17] MEDS ORDERED: MORPHINE SULFATE 4MG/4ML SYRG IVP ONE ×2 (12:30→12:36)
[2020-05-17] MEDS ORDERED: ONDANSETRON 4 MG/2 ML VIAL IVP ONE (12:37)
[2020-05-17 13:39] LABS: Glucose,Whole Blood 88 mg/dL (75-99)
[2020-05-17 14:15] VITALS: BP 133/65; PULSE 86; RESP 16
[2020-05-17] MEDS ORDERED: HEPARIN SODIUM,PORCINE 5,000 UNIT/ML 1 ML VIAL SQ SCH (16:00)
== END 2020-05-17 15:57 | disposition home or self-care (01) ==
LOC: OR 07:18
PROVIDERS: ATTEND Surgery
DX: D05.12 Intraductal carcinoma in situ of left breast (principal); N60.12 Diffuse cystic mastopathy of left breast; I10 Essential (primary) hypertension; E11.42 Type 2 diabetes mellitus with diabetic polyneuropathy; E78.5 Hyperlipidemia, unspecified; Z88.6 Allergy status to analgesic agent; Z88.5 Allergy status to narcotic agent; Z85.3 Personal history of malignant neoplasm of breast; Z90.11 Acquired absence of right breast and nipple; Z17.1 Estrogen receptor negative status [ER-]; Z90.89 Acquired absence of other organs; Z98.890 Other specified postprocedural states; Z98.82 Breast implant status; Z79.84 Long term (current) use of oral hypoglycemic drugs; Z79.899 Other long term (current) drug therapy; Z79.890 Hormone replacement therapy; Z98.41 Cataract extraction status, right eye; Z98.42 Cataract extraction status, left eye; Z80.3 Family history of malignant neoplasm of breast; Z80.0 Family history of malignant neoplasm of digestive organs
CPT/HCPCS: 19303; 88307; J2270 ×2; J0360; J1644; J0690; J2405; J2001; J3010; J0330; J2704

== ENCOUNTER → 2020-05-19 | Outpatient (CLI) | payer MEDICARE ==
[2020-05-19 14:50] VITALS: BP 183/85; PULSE 65; RESP 18; TEMP 97.8
--- NOTE | 2020-05-19 15:20 | P.PN ---
Progress Note - Text Progress Note Date: 05/19/20 Cecille is an 84 year old white female status post left breast mastectomy on . Pathology is pending. Patient comes for postoperative evaluation. At this time she does not have complaints. The dressing was changed incision is clean and dry CHIDI output is then a total of approximately 75 mL since her surgery. It was straw-colored in nature. There is no evidence of any hematoma. Physical exam: Lungs: Clear Heart: Regular rate and rhythm Incision: Clean and dry Impression: Patient doing well status post left breast mastectomy pathology pending Plan: Continue present wound care Follow-up next week CC: DR. Fajardo
== END | disposition home or self-care (01) ==
LOC: WWCWWP 14:39
PROVIDERS: ATTEND Surgery
DX: Z53.9 Procedure and treatment not carried out, unspecified reason (principal)

== ENCOUNTER → 2020-05-26 | Outpatient (CLI) | payer MEDICARE ==
[2020-05-26 15:39] VITALS: BP 173/71; PULSE 70; RESP 18; TEMP 97.6
--- NOTE | 2020-05-26 15:46 | P.PN ---
Progress Note - Text Progress Note Date: 05/26/20 Cecille is an 84 year old white female status post left breast mastectomy on . Pathology is pending. Patient comes for postoperative evaluation. At this time she does not have complaints. The dressing was changed incision is clean and dry CHIDI output is then a total of approximately 10 mL per day. It was straw-colored in nature. There is no evidence of any hematoma. Pathology revealed 2 mm of residual DCIS. Margins at this time are negative. Physical exam: Lungs: Clear Heart: Regular rate and rhythm Incision: Clean and dry Impression: Patient doing well status post left breast mastectomy Plan: DC CHIDI drain Remove half of myriam Follow-up a week and a half Follow-up medical oncology
== END | disposition home or self-care (01) ==
LOC: WWCWWP 15:14
PROVIDERS: ATTEND Surgery
DX: Z53.9 Procedure and treatment not carried out, unspecified reason (principal)

== ENCOUNTER → 2020-06-24 | Outpatient (CLI) | payer MEDICARE ==
[2020-06-24 10:57] VITALS: BP 158/79; PULSE 67; RESP 18; TEMP 97.7
--- NOTE | 2020-06-24 11:31 | P.PN ---
Progress Note - Text Progress Note Date: 06/24/20 Cceille is an 84 year old white female status post left breast mastectomy on 128- 20. Pathology 74038 did reveal focal residual high-grade DCIS adjacent to previous biopsy site, margins are negative. Patient comes for postoperative evaluation. This was ER/CO negative. Physical exam: Lungs: Clear Heart: Regular rate and rhythm Incision: Clean and dry, seroma present Impression: Patient doing well status post left breast mastectomy Plan: Patient has followed with medical oncology, she will follow with him one more time the lesion was ER/Pr- The patient is going to follow up with plastic surgeon remove myriam aspiration of seroma follow up in 4 months CC: Dr. Fajardo seroma aspiration: The area of skin was prepped using alcohol, a 60 mL syringe with an 18-gauge needle was inserted into the area of fluctuance and 45 mL of straw-colored fluid was withdrawn the seroma was resolved the patient tolerated the procedure in stable condition
== END | disposition home or self-care (01) ==
LOC: WWCWWP 10:34
PROVIDERS: ATTEND Surgery
DX: Z53.9 Procedure and treatment not carried out, unspecified reason (principal)

== ENCOUNTER → 2020-11-10 | Outpatient (CLI) | payer MEDICARE ==
--- NOTE | 2020-11-10 12:59 | P.PN ---
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 This was ER/TX positive, HER-2 negative, and grade 2. She was on Femora for 5 years. She did not have any radiation or chemotherapy. She has not had any recurrence. [place] diagnostic [place] [address] she was noted to have a group of pleomorphic calcifications in the left breast. [place] [address]. 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 She subsequently underwent a lumpectomy on 309 952 which revealed positive margins and she opted for a mastectomy which was performed 05-17-20. Postoperatively she has done well and has had reconstruction with . At this time she has no complaints related to any lumps masses or nodules in her chest wall. She did not have any chemotherapy or radiation related to the left breast DCIS and she did not have any anti-hormonal therapy. Oncology note from [id number] Le reviewed Family history: patient: right breast cancer mother: breast cancer sister: colon cancer Hormonal history: Menarche: 13 , breast fed: none, first born at 23 menopause: 47 BCP: < 1 year hormones: none Surgical history: 1. Right mastectomy/reconstruction 10 months later/ DR. Sim 2. Tonsillectomy Medical History: Hypertension Cholesterol Prediabetic Ankle and foot neuropathy Social history: Smoke: Negative Alcohol: 2 glasses of wine per month Drugs: Negative - Constitutional Constitutional: Denies chills, Denies fever - EENT Comment: wears glasses, macular degeneration Eyes: denies blurred vision, denies pain Ears: deny: decreased hearing, tinnitus Ears, nose, mouth and throat: Denies headache, Denies sore throat - Breasts Breasts: bilateral: as per HPI - Cardiovascular Cardiovascular: Reports high blood pressure - Respiratory Respiratory: Denies cough - Gastrointestinal Gastrointestinal: Denies abdominal pain, Denies diarrhea, Denies nausea, Denies vomiting - Genitourinary (Female) Genitourinary: Denies dysuria, Denies hematuria - Menstruation Menstruation: Reports postmenopausal - Musculoskeletal Comment: arthritis - Integumentary Integumentary: Denies pruritus, Denies rash - Neurological Comment: Neuropathy of bilateral/feet - Psychiatric Psychiatric: Denies anxiety, Denies depression - Endocrine Comment: hypothyroid Endocrine: Denies fatigue, Denies weight change - Hematologic/Lymphatic Comment: none - Allergic/Immunologic Allergic/Immunologic: Reports as per HPI Objective - Vital Signs Vital signs: Intake & Output 11/09/20 11/10/20 11/10/20 18:59 06:59 18:59 Weight 50.802 kg - Exam BMI 20.5 - Constitutional General appearance: Present: average body habitus - EENT Eyes: Present: EOMI ENT: Present: hearing grossly normal - Neck Neck: Present: normal ROM - Respiratory Respiratory: bilateral: CTA - Cardiovascular Rhythm: regular Heart sounds: normal: S1, S2 - Integumentary Integumentary: Present: normal turgor - Musculoskeletal Musculoskeletal: Present: gait normal - Psychiatric Psychiatric: Present: A&O x's 3, appropriate affect, intact judgment & insight - Additional findings Additional findings: chest wall exam: Right chest wall no evidence of any recurrent disease/status post implant wilber nstruction question subpectoral Right axilla: No adenopathy of concern Left chest wall: Patient with lighting fixture installer in place she does have some mild erythema on the inferior aspect of the flap suspect this is a fungal infection Left axilla: No adenopathy of concern Assessment and Plan Assessment: Impression: 1. Patient status post bilateral mastectomy, right breast stage I invasive ductal carcinoma no evidence of recurrent disease Left breast DCIS in the process of reconstruction 2. Mild erythema inferior flap left breast suspect fungal infection 3. Hypertension 4. Prediabetic 5. High cholesterol 6. Peripheral neuropathy Plan: 1.nystatin left breast 2. follow with medical oncology 3. follow with plastic surgery CC: Dr. Fajardo
[2020-11-10 13:03] VITALS: BP 177/81; PULSE 69; RESP 18; TEMP 98
== END ==
LOC: WWCWWP 12:26
PROVIDERS: ATTEND Surgery
DX: Z08 Encounter for follow-up examination after completed treatment for malignant neoplasm (principal); Z90.13 Acquired absence of bilateral breasts and nipples; Z85.3 Personal history of malignant neoplasm of breast; L53.9 Erythematous condition, unspecified; I10 Essential (primary) hypertension; R73.03 Prediabetes; E78.00 Pure hypercholesterolemia, unspecified; G62.9 Polyneuropathy, unspecified; Z88.5 Allergy status to narcotic agent

== ENCOUNTER → 2021-04-27 | Outpatient (CLI) | payer MEDICARE ==
[2021-04-27 10:48] VITALS: BP 122/78; PULSE 62; RESP 16; TEMP 98.5
--- NOTE | 2021-04-27 10:58 | P.PN ---
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 This was ER/FL positive, HER-2 negative, and grade 2. She was on Femora for 5 years. She did not have any radiation or chemotherapy. She has not had any recurrence. [place] [id number] she was noted to have a group of pleomorphic calcifications in the left breast. [place] [id number]. 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 She subsequently underwent a lumpectomy on 752 [id number] which revealed positive margins and she opted for a mastectomy which was performed 05-17-20. Postoperatively she has done well and has had reconstruction with . At this time she has no complaints related to any lumps masses or nodules in her chest wall. She developed a rash on her right wall after a root denny; and was started on flagyl and Penicillin. She did not have any chemotherapy or radiation related to the left breast DCIS and she did not have any anti-hormonal therapy. [place]cology [place] from [id number], Dr. Le. Family history: patient: right breast cancer mother: breast cancer sister: colon cancer Hormonal history: Menarche: 13 , breast fed: none, first born at 23 menopause: 47 BCP: < 1 year hormones: none Surgical history: 1. Right mastectomy/reconstruction 10 months later/ DR. Sim 2. Tonsillectomy Medical History: Hypertension Cholesterol Prediabetic Ankle and foot neuropathy Social history: Smoke: Negative Alcohol: 2 glasses of wine per month Drugs: Negative - Constitutional Constitutional: Denies chills, Denies fever - EENT Comment: wears glasses, macular degeneration Eyes: denies blurred vision, denies pain Ears: deny: decreased hearing, tinnitus Ears, nose, mouth and throat: Denies headache, Denies sore throat - Breasts Breasts: bilateral: as per HPI - Cardiovascular Cardiovascular: Reports high blood pressure - Respiratory Respiratory: Denies cough - Gastrointestinal Gastrointestinal: Denies abdominal pain, Denies diarrhea, Denies nausea, Denies vomiting - Genitourinary (Female) Genitourinary: Denies dysuria, Denies hematuria - Menstruation Menstruation: Reports postmenopausal - Musculoskeletal Comment: arthritis - Integumentary Integumentary: Denies pruritus, Denies rash - Neurological Comment: Neuropathy of bilateral/feet - Psychiatric Psychiatric: Denies anxiety, Denies depression - Endocrine Comment: hypothyroid Endocrine: Denies fatigue, Denies weight change - Hematologic/Lymphatic Comment: none - Allergic/Immunologic Allergic/Immunologic: Reports as per HPI Objective - Vital Signs Vital signs: Intake & Output 04/26/21 04/27/21 04/27/21 18:59 06:59 18:59 Weight 50.802 kg - Constitutional General appearance: Present: cooperative - EENT Eyes: Present: EOMI ENT: Present: hearing grossly normal - Neck Neck: Present: normal ROM - Respiratory Respiratory: bilateral: CTA - Cardiovascular Rhythm: regular Heart sounds: normal: S1, S2 - Gastrointestinal General gastrointestinal: Present: soft - Integumentary Integumentary: Present: normal turgor - Musculoskeletal Musculoskeletal: Present: gait normal - Psychiatric Psychiatric: Present: A&O x's 3, appropriate affect, intact judgment & insight - Additional findings Additional findings: chest wall exam: Bilateral implant reconstruction, examination of the chest wall does not reveal any evidence of recurrent cancer on either side both incisions are clean and dry and well healed Right axilla: No adenopathy of concern Left axilla: No adenopathy of concern The patient does have a maculopapular rash which is slightly raised over her upper chest extending onto her right shoulder I suspect this may be related to the antibiotic ALLERGY Assessment and Plan Assessment: Impression: 1. right breast invasive ductal cancer Stage IA, left breast DCIS 2. no evidence of recurrence 3. rash over upper chest Plan: 1. follow up in 6 months 2. follow up with Dr. Fajardo regarding rash CC: Dr. Fajardo
== END ==
LOC: WWCWWP 10:05
PROVIDERS: ATTEND Surgery
DX: C50.911 Malignant neoplasm of unspecified site of right female breast (principal); C50.912 Malignant neoplasm of unspecified site of left female breast; R21 Rash and other nonspecific skin eruption; I10 Essential (primary) hypertension; Z88.5 Allergy status to narcotic agent; Z88.0 Allergy status to penicillin

== ENCOUNTER → 2021-12-21 | Outpatient (CLI) | payer MEDICARE ==
[2021-12-21 12:37] VITALS: BP 175/92; PULSE 60; RESP 17; TEMP 97.9
--- NOTE | 2021-12-21 12:50 | P.PN ---
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 This was ER/RI positive, HER-2 negative, and grade 2. She was on Femora for 5 years. She did not have any radiation or chemotherapy. She has no t had any recurrence. [place] [address] she was noted to have a group of pleomorphic calcifications in the left breast. [place] [id number]. 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 She subsequently underwent a lumpectomy on which revealed positive margins and she opted for a mastectomy which was performed 05-17-20. Postoperatively she has done well and has had reconstruction with . At this time she has no complaints related to any lumps masses or nodules in her chest wall. She developed a rash on her right wall after a root canal; and was started on flagyl and Penicillin. She did not have any chemotherapy or radiation related to the left breast DCI S and she did not have any anti-hormonal therapy. [place]cology note from [id number], Dr. Le. 12-21-21 the patient is not complaining of any new lumps masses or nodules on her chest wall. She had bilateral breast reconstruction. Family history: patient: right breast cancer mother: breast cancer sister: colon cancer Hormonal history: Menarche: 13 , breast fed: none, first born at 23 menopause: 47 BCP: < 1 year hormones: none Surgical history: 1. Right mastectomy/reconstruction 10 months later/ DR. Sim 2. Tonsillectomy Medical History: Hypertension Cholesterol Prediabetic Ankle and foot neuropathy Social history: Smoke: Negative Alcohol: 2 glasses of wine per month Drugs: Negative - Constitutional Constitutional: Denies chills, Denies fever - EENT Comment: wears glasses, macular degeneration Eyes: denies blurred vision, denies pain Ears: deny: decreased hearing, tinnitus Ears, nose, mouth and throat: Denies headache, Denies sore throat - Breasts Breasts: bilateral: as per HPI - Cardiovascular Cardiovascular: Reports high blood pressure - Respiratory Respiratory: Denies cough - Gastrointestinal Gastrointestinal: Denies abdominal pain, Denies diarrhea, Denies nausea, Denies vomiting - Genitourinary (Female) Genitourinary: Denies dysuria, Denies hematuria - Menstruation Menstruation: Reports postmenopausal - Musculoskeletal Comment: arthritis - Integumentary Integumentary: Denies pruritus, Denies rash - Neurological Comment: Neuropathy of bilateral/feet - Psychiatric Psychiatric: Denies anxiety, Denies depression - Endocrine Comment: hypothyroid Endocrine: Denies fatigue, Denies weight change - Hematologic/Lymphatic Comment: none - Allergic/Immunologic Allergic/Immunologic: Reports as per HPI Objective - Vital Signs Vital signs: Vital Signs Temp 97.9 F 12/21/21 12:35 Pulse 60 12/21/21 12:35 Resp 17 12/21/21 12:35 BP 175/92 12/21/21 12:35 Pulse Ox 95 12/21/21 12:35 FiO2 Intake & Output 12/20/21 12/21/21 12/21/21 18:59 06:59 18:59 Weight 50.802 kg - Exam BMI 20.5 - Constitutional General appearance: Present: cooperative - EENT Eyes: Present: EOMI ENT: Present: hearing grossly normal - Neck Neck: Present: normal ROM - Respiratory Respiratory: bilateral: CTA - Cardiovascular Rhythm: regular Heart sounds: normal: S1, S2 - Integumentary Integumentary: Present: normal turgor - Musculoskeletal Musculoskeletal: Present: gait normal - Psychiatric Psychiatric: Present: A&O x's 3, appropriate affect, intact judgment & insight - Additional findings Additional findings: Breast Exam: inspection: bilateral reconstruction palpation: Right breast: Reconstructed right breast Multi-positional exam no evidence of recurrence of cancer Right axilla: No adenopathy of concern Left breast: Reconstructed left breast no evidence of recurrent cancer Left axilla: No adenopathy of concern Assessment and Plan Assessment: Impression: No evidence of recurrent cancer/patient status post treatment for stage IA right breast cancer and DCIS left breast Plan: Follow up in 6 months for examination emanation Follow up sooner any questions or concerns Cc: Dr. Fajardo
== END ==
LOC: WWCWWP 12:06
PROVIDERS: ATTEND Surgery
DX: Z08 Encounter for follow-up examination after completed treatment for malignant neoplasm (principal); Z85.3 Personal history of malignant neoplasm of breast; I10 Essential (primary) hypertension; Z88.5 Allergy status to narcotic agent; Z88.0 Allergy status to penicillin

== ENCOUNTER → 2022-08-30 | Outpatient (CLI) | payer MEDICARE ==
[2022-08-30 11:49] VITALS: BP 136/70; PULSE 72; RESP 16; TEMP 98.5
--- NOTE | 2022-08-30 12:16 | P.PN ---
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 This was ER/MI positive, HER-2 negative, and grade 2. She was on Femora for 5 years. She did not have any radiation or chemotherapy. She has not had any recurrence. A diagnostic mammogram of the left breast was done on she was noted to have a group of pleomorphic calcifications in the left breast. [place] [address]. This revealed high-grade DCIS with comedo necrosis and lobular extension. She subsequently underwent a lumpectomy on which revealed positive margins and she opted for a mastectomy which was performed 05-17-20. Postoperatively she has done well and has had reconstruction with . At this time she has no complaints related to any lumps masses or nodules in her chest wall. She developed a rash on her right wall after a root canal; and was started on flagyl and Penicillin. She did not have any chemotherapy or radiation related to the left breast DCIS and she did not have any anti-hormonal therapy. She did have genetic testing done which was (-). 08-30-22 the patient is not complaining of any new lumps masses or nodules on her chest wall. She had bilateral breast reconstruction. She had a skin cancer recently removed from her left leg and is following with dermatology. Family history: patient: right breast cancer mother: breast cancer sister: colon cancer Hormonal history: Menarche: 13 , breast fed: none, first born at 23 menopause: 47 BCP: < 1 year hormones: none Surgical history: 1. Right mastectomy/reconstruction 10 months later/ DR. Sim 2. Tonsillectomy 3. left mastectomy and reconstruction 4. skin cancer left leg Medical History: Hypertension Cholesterol Prediabetic Ankle and foot neuropathy Social history: Smoke: Negative Alcohol: 2 glasses of wine per month Drugs: Negative - Constitutional Constitutional: Denies chills, Denies fever - EENT Comment: wears glasses, macular degeneration Eyes: denies blurred vision, denies pain Ears: deny: decreased hearing, tinnitus Ears, nose, mouth and throat: Denies headache, Denies sore throat - Breasts Breasts: bilateral: as per HPI - Cardiovascular Cardiovascular: Reports high blood pressure - Respiratory Respiratory: Denies cough - Gastrointestinal Gastrointestinal: Denies abdominal pain, Denies diarrhea, Denies nausea, Denies vomiting - Genitourinary (Female) Genitourinary: Denies dysuria, Denies hematuria - Menstruation Menstruation: Reports postmenopausal - Musculoskeletal Comment: arthritis - Integumentary Integumentary: Denies pruritus, Denies rash - Neurological Comment: Neuropathy of bilateral/feet - Psychiatric Psychiatric: Denies anxiety, Denies depression - Endocrine Comment: hypothyroid Endocrine: Denies fatigue, Denies weight change - Hematologic/Lymphatic Comment: none - Allergic/Immunologic Allergic/Immunologic: Reports as per HPI Objective - Vital Signs Vital signs: Vital Signs Temp 98.5 F 08/30/22 11:47 Pulse 72 08/30/22 11:47 Resp 16 08/30/22 11:47 BP 136/70 08/30/22 11:47 Pulse Ox 97 08/30/22 11:47 FiO2 Intake & Output 08/29/22 08/30/22 08/30/22 18:59 06:59 18:59 Weight 50.349 kg - Constitutional General appearance: Present: cooperative - EENT Eyes: Present: EOMI ENT: Present: hearing grossly normal - Neck Neck: Present: normal ROM - Respiratory Respiratory: bilateral: CTA - Cardiovascular Rhythm: regular Heart sounds: normal: S1, S2 - Gastrointestinal General gastrointestinal: Present: soft - Integumentary Integumentary: Present: normal turgor - Musculoskeletal Musculoskeletal: Present: gait normal - Psychiatric Psychiatric: Present: A&O x's 3, appropriate affect, intact judgment & insight - Additional findings Additional findings: Breast Exam: inspection: bilateral reconstruction palpation: Right breast: Reconstructed right breast Multi-positional exam no evidence of recurrence of cancer Right axilla: No adenopathy of concern Left breast: Reconstructed left breast no evidence of recurrent cancer Left axilla: No adenopathy of concern Assessment and Plan Assessment: Impression: Hypertension Cholesterol Prediabetic Ankle and foot neuropathy right breast stage I invasive ductal cancer no recurrence left breast DCIS no recurrence Plan: follow up with medical oncology follow up 6 months CC: Dr. Fajardo
== END ==
LOC: WWCWWP 11:06
PROVIDERS: ATTEND Surgery
DX: D05.11 Intraductal carcinoma in situ of right breast (principal); D05.12 Intraductal carcinoma in situ of left breast; I10 Essential (primary) hypertension; E78.00 Pure hypercholesterolemia, unspecified; R73.03 Prediabetes; G57.92 Unspecified mononeuropathy of left lower limb; Z80.3 Family history of malignant neoplasm of breast; Z80.0 Family history of malignant neoplasm of digestive organs; Z88.5 Allergy status to narcotic agent; Z88.0 Allergy status to penicillin

== ENCOUNTER → 2024-03-06 | Outpatient (CLI) | payer MEDICARE ==
[2024-03-06 10:26] VITALS: BP 148/74; PULSE 74; RESP 16; TEMP 97.9
--- NOTE | 2024-03-06 10:48 | P.PN ---
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 This was ER/AZ positive, HER-2 negative, and grade 2. She was on Femora for 5 years. She did not have any radiation or chemotherapy. She has not had any recurrence. A diagnostic mammogram of the left breast was done on she was noted to have a group of pleomorphic calcifications in the left breast[place] [id number]. This revealed high-grade DCIS with comedo necrosis and lobular extension. She subsequently underwent a lumpectomy on which revealed positive margins and she opted for a mastectomy which was performed 05-17-20. Postoperatively she has done well and has had reconstruction with . At this time she has no complaints related to any lumps masses or nodules in her chest wall. She developed a rash on her right wall after a root canal; and was started on flagyl and Penicillin. She did not have any chemotherapy or radiation related to the left breast DCIS and she did not have any anti-hormonal therapy. She did have genetic testing done which was (-). She was seen on 08-30-22 and was not complaining of any new lumps masses or nodules on her chest wall. She had bilateral breast reconstruction. She had had a skin cancer recently removed from her left leg and was following with dermatology. She was seen on 03-07-23 and was not complaining of any new lumps masses or nodules of concern. Today she is not complaining of any lumps masses or nodules of concern in either chest wall. Family history: patient: right breast cancer mother: breast cancer sister: colon cancer Hormonal history: Menarche: 13 , breast fed: none, first born at 23 menopause: 47 BCP: < 1 year hormones: none Surgical history: 1. Right mastectomy/reconstruction 10 months later/ DR. Sim 2. Tonsillectomy 3. left mastectomy and reconstruction 4. skin cancer left leg Medical History: Hypertension Cholesterol Prediabetic Ankle and foot neuropathy Social history: Smoke: Negative Alcohol: 2 glasses of wine per month Drugs: Negative - Constitutional Constitutional: Denies chills, Denies fever - EENT Comment: wears glasses, macular degeneration Eyes: denies blurred vision, denies pain Ears: deny: decreased hearing, tinnitus Ears, nose, mouth and throat: Denies headache, Denies sore throat - Breasts Breasts: bilateral: as per HPI - Cardiovascular Cardiovascular: Reports high blood pressure - Respiratory Respiratory: Denies cough - Gastrointestinal Gastrointestinal: Denies abdominal pain, Denies diarrhea, Denies nausea, Denies vomiting - Genitourinary (Female) Genitourinary: Denies dysuria, Denies hematuria - Menstruation Menstruation: Reports postmenopausal - Musculoskeletal Comment: arthritis - Integumentary Integumentary: Denies pruritus, Denies rash - Neurological Comment: Neuropathy of bilateral/feet - Psychiatric Psychiatric: Denies anxiety, Denies depression - Endocrine Comment: hypothyroid Endocrine: Denies fatigue, Denies weight change - Hematologic/Lymphatic Comment: none - Allergic/Immunologic Allergic/Immunologic: Reports as per HPI Objective - Vital Signs Vital signs: Vital Signs Temp 97.9 F 03/06/24 10:24 Pulse 74 03/06/24 10:24 Resp 16 03/06/24 10:24 BP 148/74 03/06/24 10:24 Pulse Ox 96 03/06/24 10:24 FiO2 Intake & Output 03/05/24 03/06/24 03/06/24 18:59 06:59 18:59 Weight 50.802 kg - Constitutional General appearance: Present: cooperative - EENT Eyes: Present: EOMI ENT: Present: hearing grossly normal - Neck Neck: Present: normal ROM - Respiratory Respiratory: bilateral: CTA - Cardiovascular Heart sounds: normal: S1, S2 - Integumentary Integumentary: Present: normal turgor - Musculoskeletal Musculoskeletal: Present: gait normal - Psychiatric Psychiatric: Present: A&O x's 3, appropriate affect, intact judgment & insight - Additional findings Additional findings: Breast Exam: inspection: bilateral reconstruction palpation: Right breast: Reconstructed right breast Multi-positional exam no evidence of recurrence of cancer Right axilla: No adenopathy of concern Left breast: Reconstructed left breast no evidence of recurrent cancer Left axilla: No adenopathy of concern Assessment and Plan Assessment: Impression: Hypertension Cholesterol Prediabetic Ankle and foot neuropathy right breast stage I invasive ductal cancer no recurrence left breast DCIS no recurrence Plan: follow up with medical oncology follow up 1 year follow up sooner any concerns CC: Dr. Fajardo
== END ==
LOC: WWCWWP 09:30
PROVIDERS: ATTEND Surgery
DX: I10 Essential (primary) hypertension (principal); G57.90 Unspecified mononeuropathy of unspecified lower limb; R73.03 Prediabetes; Z80.3 Family history of malignant neoplasm of breast; Z85.3 Personal history of malignant neoplasm of breast; Z90.13 Acquired absence of bilateral breasts and nipples; Z88.5 Allergy status to narcotic agent; Z88.0 Allergy status to penicillin; Z79.899 Other long term (current) drug therapy

== ENCOUNTER → 2024-11-23 | Outpatient (CLI) | payer MEDICARE ==
--- NOTE | 2024-11-23 11:53 | BD ---
EXAMINATION TYPE: Axial Bone Density DATE OF EXAM: 11/23/2024 CLINICAL HISTORY: 89 years old Female. ICD-10 CODE: M81.0 Osteopenia , Additional History: Height: 60.5 in Weight: 111 lbs FRAX RISK QUESTIONS: Family History (Parent hip fracture): yes mother MEDICATIONS: Thyroid Medications: yes Which medication: Levothyroxine How Lon years Osteoporosis Medications: yes Which medication: Other How Lon years EXAM MEASUREMENTS: Bone mineral densitometry was performed using the [employer] System. Bone mineral density as measured about the Lumbar spine is: ----- L1-L4(G/cm2): 1.077 T Score Values are as follows: ----- L1: -2.4 ----- L2: -1.4 ----- L3: 0.8 ----- L4: -0.9 ----- L1-L4: -0.9 Z Score Values are as follows: ----- L1: 0.1 ----- L2: 1.1 ----- L3: 3.3 ----- L4: 1.6 ----- L1-L4: 1.6 Bone mineral density baseline Bone mineral density about the R hip (g/cm2): 0.703 Bone mineral density about the L hip (g/cm2): 0.692 T Score values are as follows: -----R Neck: -2.3 -----L Neck: -2.1 -----R Total: -2.4 -----L Total: -2.5 Z Score values are as follows: -----R Neck: 0.6 -----L Neck: 0.8 -----R Total: 0.4 -----L Total: 0.3 Bone mineral density baseline FRAX%s: The graph provided illustrates a 25.3% chance for a major osteoporotic fx and a 18.0% chance for the hips probability for fx in 10 years time. IMPRESSION: Osteoporosis (T Score less than -2.5). There is increased fracture risk and therapy is usually indicated based on age. Re-Screen 1-2 years. NOTE: T-SCORE=SD OF THE YOUNG ADULT MEAN. [facility], , 11/23/2024 11:50 AM
== END | disposition home or self-care (01) ==
LOC: RADBDWWP 10:43
PROVIDERS: ATTEND Internal Medicine Hematology & Oncology
DX: M81.0 Age-related osteoporosis without current pathological fracture (principal); M85.89 Other specified disorders of bone density and structure, multiple sites
CPT/HCPCS: 77080